=== PATIENT | female | born 1995 | race African-American/Black ===

== ENCOUNTER 2018-07-26 00:14 | Emergency (ER) | payer OTHER | END 2018-07-26 02:28 | disposition home or self-care (01) | LOC: JER 00:14 ==

== ENCOUNTER 2022-06-21 18:36 | Emergency (ER) | payer SELFPAY ==
[2022-06-21 18:58] VITALS: BP 115/78; PULSE 96; RESP 16; TEMP 98.9; BMI 25.8
[2022-06-21] MEDS ORDERED: ACETAMINOPHEN 500 MG TABLET (FP) PO ONE (22:27)
[2022-06-21] MEDS ORDERED: ACETAMINOPHEN 500 MG TABLET (FP) ONE (22:27)
[2022-06-21 22:45] LABS: BASO % 0.9 % (0-2.0); EOS % 1.3 % (0-4.5); HEMATOCRIT 34.5 % (32.4-45.2); HEMOGLOBIN 11.9 GM/dL (10.7-15.3); LYMPH % 49.2 % (8-40); MCH 27.2 pg (25.7-33.7); MCHC 34.5 g/dl (32.0-36.0); MEAN CELL VOLUME 78.9 fl (80-96); MEAN PLT VOLUME 8.7 fl (7.5-11.1); MONO % 12.6 % (3.8-10.2); PLATELET COUNT 288 10^3/uL (134-434); RBC 4.37 M/mm3 (3.60-5.2); RDW 12.5 % (11.6-15.6); WHITE BLOOD COUNT 4.2 K/mm3 (4.0-10.0)
[2022-06-21 23:00] LABS: POTASSIUM 4.1 mmol/L (3.5-5.1)
[2022-06-21 23:02] LABS: BLOOD UREA NITROGEN 13.6 mg/dL (7-18)
[2022-06-21 23:03] LABS: ALBUMIN 3.5 g/dl (3.4-5.0)
[2022-06-21 23:06] LABS: CREATININE 0.9 mg/dL (0.55-1.3)
[2022-06-21 23:07] LABS: TOT PROT 7.1 g/dl (6.4-8.2)
[2022-06-21] MEDS ORDERED: HIV POST EXPOSURE PROPHYLAXIS KIT NR ONE (23:18)
[2022-06-21] MEDS ORDERED: HIV POST EXPOSURE PROPHYLAXIS KIT PO ONE (23:21)
[2022-06-21 23:41] LABS: BILIRUBIN,TOTAL 0.3 mg/dL (0.2-1); CALCIUM 9.4 mg/dL (8.5-10.1)
[2022-06-22 12:12] LABS: HIV INTERPRETATION NEGATIVE (NEGATIVE)
== END 2022-06-21 23:20 | disposition home or self-care (01) ==
LOC: JER 18:36
DX: S61.131A Puncture wound without foreign body of right thumb with damage to nail, initial encounter (principal); W46.0XXA Contact with hypodermic needle, initial encounter
CPT/HCPCS: 36415; 80053; 84703; 85025; 86704; 86803; 87340; 87389; 87517; 99283-25